=== PATIENT | female | born 1990 | race Native Hawaiian/Other Pacific Islander ===

== ENCOUNTER 2017-08-14 00:52 | Emergency (ER) | payer MEDICAID, OTHER ==
[~2017-08-14] VITALS: Ht 160 cm; Wt 59.4 kg
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
--- NOTE | 2017-08-14 01:37 | NUR ---
REPORTED TO [facility].
--- NOTE | 2017-08-14 01:41 | NUR ---
[facility] OFFICER ABIOLA.
--- NOTE | 2017-08-14 02:08 | NUR ---
[facility] HERE FOR REPORT AND TRANSPORT OF PATIENT.
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
[2017-08-14 03:35] VITALS: BP 128/78
== END 2017-08-14 03:05 | disposition home or self-care (01) ==
LOC: ER 00:56
DX: T74.21XA Adult sexual abuse, confirmed, initial encounter (principal); F32.9 Major depressive disorder, single episode, unspecified
CPT/HCPCS: 99284; A4606; Z7610